=== PATIENT | male | born 1940 | race Caucasian/White ===

== ENCOUNTER 2017-01-07 19:00 | Inpatient (IN) ==
--- NOTE | 2017-01-07 19:38 | Emergency Department Note ---
Disposition Clinical Impression: Dehydration, Debility, Peripheral edema, Multiple falls, Elevated troponin I level, Chronic venous hypertension (idiopathic) with ulcer and inflammation of left lower extremity [id number] kidney injury Qualifiers: Acute renal failure type: unspecified Chronic kidney disease stage: unspecified stage Qualified Code(s): N17.9 - Acute kidney failure, unspecified Diabetic ulcer of right foot with fat layer exposed Qualifiers: Diabetic foot ulcer location: unspecified part of foot Diabetes mellitus type: other specified (including EMILY) Qualified Code(s): E13.621 - Other specified diabetes mellitus with foot ulcer Disposition: Admitted As Inpatient Condition: Good Time of Disposition: 00:02 Weakness HPI - General Chief complaint: ED General Medical Stated complaint: fall/"stretched chest" Time Seen by Provider: 01/07/17 19:11 Source: patient Limitations: no limitations Nursing Notes Reviewed: Yes Vital Signs Reviewed: Yes - History of Present Illness HPI Narrative: 76-year-old male history of CABGx4, CHF and 80 mg of Lasix twice a day, peripheral venous stasis dermatitis, diabetic ulcers, diabetes, referral vascular disease, presents with weakness and multiple falls at home. Patient had a ground-level fall off the bed as he is running out of bed and fell onto his back and buttocks, has bruising to his bilateral upper arms when he was moved, his had a lot of difficulty moving them out of the bed was wedged in between the bed and the wall. The patient reports intermittent chest pain, history of quadruple bypass reports for the 10 chest pain or shortness of breath , denies fever chills productive cough. Intermittent nausea but no diaphoresis associated with this chest pain. Pt Subjective Complaint: generalized weakness/fatigue Onset (ago): day(s) Duration: intermittent Pain Severity: moderate Pain Scale: 9 If pain, quality: aching Associated symptoms: Reports: chest pain, dysuria, easy bruising, nausea/ vomiting. Denies: dark stools, diaphoresis, fever/chills, headaches, loss of appetite, myalgias - Related Data Home Medications Medication Instructions Recorded Confirmed Atorvastatin [Lipitor] 40 mg PO HS 10/09/16 01/07/17 Furosemide [Lasix] 80 mg PO DAILY 10/09/16 01/07/17 Insulin Glargine,Hum.rec.anlog 32 unit SQ DAILY 10/09/16 01/07/17 [Lantus Solostar] Insulin Glargine,Hum.rec.anlog 40 unit SQ HS 10/09/16 01/07/17 [Lantus Solostar] Insulin LISPRO [Humalog] 0 unit SQ TIDWM 10/09/16 01/07/17 Lisinopril [Zestril] 5 mg PO DAILY 10/09/16 01/07/17 Potassium Chloride [Klor-Con 10] 30 meq PO BID 10/09/16 01/07/17 Pramipexole [Mirapex] 1.5 mg PO HS 10/09/16 01/07/17 metOLazone [Zaroxolyn] 2.5 mg PO Q48H 10/09/16 01/07/17 Aspirin Enteric Coated [Aspirin EC] 81 mg PO DAILY 01/07/17 01/07/17 Ferrous Sulfate 325 mg PO BIDWM 01/07/17 01/07/17 Isosorbide MONOnitrate (24 HR) 30 mg PO DAILY 01/07/17 01/07/17 [Imdur] Metoprolol XL (24 HR) Succ [Toprol 50 mg PO DAILY 01/07/17 01/07/17 XL] [place]-3 Fatty Acids [Fish Oil 1,000 mg PO DAILY 01/07/17 01/07/17 Concentrate] Allergies Allergy/AdvReac Type Severity Reaction Status Date / Time Latex, Natural Rubber AdvReac Rash Verified 07/29/16 13:54 All systems ED: reviewed and negative except as stated. Review of Systems: As Per HPI Constitutional: Reports: as per HPI, weakness, weight change. Denies: fever, chills Eyes: Denies: eye pain ENT ED: Denies: ear pain Cardiovascular: Reports: as per HPI, chest pain, dyspnea on exertion, orthopnea , edema Respiratory: Denies: cough, dyspnea Gastrointestinal: Denies: abdominal pain, nausea Genitourinary: Reports: as per HPI, frequency, other (Hesitency and retention). Denies: urgency, dysuria Integumentary: Denies: rash, abrasion Neurological: Reports: as per HPI, weakness. Denies: headache, numbness, paresthesias Psychiatric: Denies: anxiety Past Medical History - Past Medical History Attestation: Yes The following information was validated with the patient. Source: patient Medical history: Reports: CHF, diabetes, hyperlipidemia, hypertension, myocardial infarction Surgical history: Reports: coronary bypass (CABG) Psychiatric history: Reports: no psych history - Social History Smoking Status: Never smoker Smokeless Tobacco Status: No Alcohol use: Reports: none Drug use: Reports: none Physical Exam Constitutional: Obese male hypoxic 93% on 3 L, appears uncomfortable Eyes: PERRLA, sclera anicteric ENT & Mouth: dry mucous mem Neck: normal inspection, mild right lateral tenderness no c spine ttp Resp: Diminished at the bases bilaterally fine Rales CV: Diminished heart sounds secondary to habitus GI: obese reducible umbilical hernia, no guardinging or rebound : limited secondary to habitus, leakage of urine, no evidence of glans penis on inspection, uncircumcised per pt Back: normal inspection, no tenderness to palpation Neuro: A&O3, CNII-XII grossly intact, WATTERS Skin: Stasis dermatitis +3 pitting edema bilateral lower extremities, right leg in a cast below knee ulcer per patient - General Limitations: no limitations General appearance: alert, in no apparent distress Course Course Narrative: 76-year-old male with shortness of breath generalized weakness chest pain, EKG shows no ischemic changes, patient concerning given chronic debility weakness likely renal failure CHF troponin CBC BMP CT had given fall plan to admit. - Reevaluation(s) Reevaluation #1: Pt with elevated troponin 0.12 in the setting of acute kidney injury and recent fall will not anticoagulate with heparin or Lovenox at this time, aspirin was given, admitted to the hospitalist service, multiple times at [facility] catheter placement were attempted in the ED a 14-[place] coude catheter was attempted and unsuccessful secondary to unable to visualize urethra, patient likely will need urology for catheter placement however not felt to be emergently given the patient had some leakage of urine and was able to be placed in a diaper at bedside .Admrubén talamanteso hospitalist Jose. Time: 00:08 Vital Signs Temperature 98.4 F 01/07/17 19:03 Pulse Rate 61 01/07/17 19:03 Respiratory Rate 20 01/07/17 19:03 Blood Pressure 118/69 01/07/17 19:03 O2 Sat by Pulse Oximetry 98 01/07/17 19:03 Temperature 98.4 F 01/07/17 19:03 Pulse Rate 61 01/07/17 19:03 Respiratory Rate 16 01/07/17 23:12 Blood Pressure 123/56 01/07/17 23:12 O2 Sat by Pulse Oximetry 95 01/07/17 19:43 Oxygen Delivery Oxygen Delivery Nasal Cannula Weakness - Differential Diagnosis Differential Diagnosis: Likely: hypoglycemia, rhabdomyolysis, sepsis/infection, dehydration - Medical Records Medical records reviewed: Yes I reviewed the patient's medical records. - Lab Data Lab results reviewed: Yes I reviewed the patient's lab results. Result diagrams: 01/07/17 19:25 01/07/17 19:25 Lab Results 01/07/17 01/07/17 01/07/17 Range/Units 19:25 19:25 19:25 WBC (4.3-11.1) K/mcL RBC (4.19-5.50) M/mcL Hgb (12.9-16.9) g/dL Hct (37.5-50.1) % MCV (83.0-100.0) fL MCH (28.0-33.3) pg MCHC (31.6-35.5) g/dL RDW (11.5-14.5) % Plt Count (140-400) K/mcL MPV (9.4-12.4) fL Immature Gran % (0-4) % Seg Neutrophils % % Lymphocytes % % Monocytes % % Eosinophils % % Basophils % % Neutrophils # (1.6-8.9) K/mcL Lymphocytes # (0.6-4.6) K/mcL Monocytes # (0.0-1.3) K/mcL Eosinophils # (0.0-0.6) K/mcL Basophils # (0.0-0.2) K/mcL Platelet Estimate (Normal) Immature Plt Fraction (1.1-6.1) % PT 14.6 H (9.4-12.1) Seconds INR 1.3 APTT 31.1 (26.0-36.0) Seconds Sodium 141 (136-145) mEq/L Potassium 4.7 H (3.5-4.5) mEq/L Chloride 104 (98-109) mEq/L Carbon Dioxide 31 H (19-29) mEq/L BUN 53 H (8-26) mg/dL Creatinine 1.43 H (0.72-1.25) mg/dL Est GFR ( Amer) 58 L (> 60) Est GFR (Non-Af Amer) 48 L (> 60) BUN/Creatinine Ratio 37 H (6-26) Glucose 119 H (70-99) mg/dL Calculated Osmolality 308 H (280-300) Calcium 9.0 (8.6-10.8) mg/dL Total Bilirubin 1.0 (0.2-1.2) mg/dL AST 28 (5-34) Units/L ALT 16 (0-55) Units/L Alkaline Phosphatase 118 (38-126) Units/L Creatine Kinase 297 H (30-200) Units/L Troponin I (0-0.03) ng/mL B-Natriuretic Peptide 406 H (0-100) pg/mL Serum Total Protein 6.7 (6.0-8.3) g/dL Albumin 3.0 L (3.5-5.0) g/dL Globulin 3.7 H (2.4-3.5) g/dL Albumin/Globulin Ratio 0.8 L (1.1-2.2) 01/07/17 01/07/17 Range/Units 19:25 19:25 WBC 6.6 (4.3-11.1) K/mcL RBC 3.14 L (4.19-5.50) M/mcL Hgb 9.2 L (12.9-16.9) g/dL Hct 31.1 L (37.5-50.1) % MCV 99.0 (83.0-100.0) fL MCH 29.3 (28.0-33.3) pg MCHC 29.6 L (31.6-35.5) g/dL RDW 17.8 H (11.5-14.5) % Plt Count 79 L (140-400) K/mcL MPV 11.9 (9.4-12.4) fL Immature Gran % 0.5 (0-4) % Seg Neutrophils % 73.3 % Lymphocytes % 18.1 % Monocytes % 6.2 % Eosinophils % 1.7 % Basophils % 0.2 % Neutrophils # 4.8 (1.6-8.9) K/mcL Lymphocytes # 1.2 (0.6-4.6) K/mcL Monocytes # 0.4 (0.0-1.3) K/mcL Eosinophils # 0.1 (0.0-0.6) K/mcL Basophils # 0.0 (0.0-0.2) K/mcL Platelet Estimate Decreased L (Normal) Immature Plt Fraction 6.9 H (1.1-6.1) % PT (9.4-12.1) Seconds INR APTT (26.0-36.0) Seconds Sodium (136-145) mEq/L Potassium (3.5-4.5) mEq/L Chloride (98-109) mEq/L Carbon Dioxide (19-29) mEq/L BUN (8-26) mg/dL Creatinine (0.72-1.25) mg/dL Est GFR ( Amer) (> 60) Est GFR (Non-Af Amer) (> 60) BUN/Creatinine Ratio (6-26) Glucose (70-99) mg/dL Calculated Osmolality (280-300) Calcium (8.6-10.8) mg/dL Total Bilirubin (0.2-1.2) mg/dL AST (5-34) Units/L ALT (0-55) Units/L Alkaline Phosphatase (38-126) Units/L Creatine Kinase (30-200) Units/L Troponin I 0.12 H* (0-0.03) ng/mL B-Natriuretic Peptide (0-100) pg/mL Serum Total Protein (6.0-8.3) g/dL Albumin (3.5-5.0) g/dL Globulin (2.4-3.5) g/dL Albumin/Globulin Ratio (1.1-2.2) - Radiology Data Radiology results reviewed: Yes I reviewed the patient's radiology results. Chest X-Ray 01/07/17 19:34 IMPRESSION: Cardiomegaly with pulmonary vascular congestion and bilateral pleural effusions. Mild interstitial edema is also suspected. D/ / Mgean Palmer Cha, MD / Megan Palmer Cha, MD Interpreting Provider: Megan Palmer Cha, MD Cervical Spine CT 01/07/17 19:36 IMPRESSION: No acute traumatic cervical spine abnormality Bilateral pleural effusions with dependent atelectasis. D/ / Edenilson Peralta / Edenilson Peralta Interpreting Provider: Edenilson Peralta Head CT 01/07/17 19:36 IMPRESSION: No acute intracranial abnormality. Diffuse atrophic changes with findings suggesting chronic microvascular ischemia D/ / Cory Antoine MD / Cory Antoine MD Interpreting Provider: Cory Antoine MD - EKG Data EKG attestation: Yes I reviewed and interpreted this EKG. EKG shows normal: sinus rhythm Rate: bradycardia (57 bpm W[place] 138 QRS [address] segment lavation's, depressions in leads V3 V4 and V5 V6 seen on previous EKG 14/02) Rhythm: NSR ST segment depression in: v3, v4 When compared to previous EKG there are: no significant changes Interpretation: no acute changes Attestation Statement - Attestation Attestation: I, Roque Hall MD, personally evaluated this patient and discussed their management with the resident physician. I reviewed the resident's note and agree with the documented findings, medical decision making, and plan of care. 76-year-old male presents from home with a complaint of increasing generalized weakness and a fall out of bed today. Patient states he just sort of slid out of the bed onto the floor. He was unable to get up and family had difficulty getting him up out of the floor. Patient is obese. Complains of increased swelling of his lower extremities and lower abdomen. He complains of some chest pain, mostly on the right side and thinks it is from where he fell. He denies any increased shortness of breath. No increased cough or fever. On examination patient is a well-developed obese elderly male in no acute distress. She is alert and appropriate. There is no cyanosis or diaphoresis. There is some tenderness palpation over the right anterior chest wall. Breath sounds are decreased bilaterally with some mild bibasilar rales. Heart regular rate and rhythm. Abdomen is soft and nontender with normal bowel sounds. There is a large nontender umbilical hernia. Moderate bilateral lower extremity edema. The right lower leg is in a cast. There is moderate ecchymosis to the inner aspect of the upper arms bilaterally where family tried to lift him out of the floor. Head CT negative. Chest x-ray shows cardiomegaly with pulmonary vascular congestion and bilateral pleural effusions. Mild interstitial edema is also suspected. Labs reviewed. Elevated troponin. No acute changes on EKG. The hospitalist, Dr. Garcia, was consulted and accepted admission of the patient.
[2017-01-07 19:42] LABS: Red Cell Distribution Width 17.8 % (11.5-14.5)
[2017-01-07 19:44] LABS: Basophils % 0.2 %; Eosinophils # 0.1 K/mcL (0.0-0.6); Eosinophils % 1.7 %; Hematocrit 31.1 % (37.5-50.1); Hemoglobin 9.2 g/dL (12.9-16.9); Immature Granulocytes % 0.5 % (0-4); Immature Platelets 6.9 % (1.1-6.1); Lymphocytes # 1.2 K/mcL (0.6-4.6); Lymphocytes % 18.1 %; Mean Corpuscular HGB Conc 29.6 g/dL (31.6-35.5); Mean Corpuscular Hemoglobin 29.3 pg (28.0-33.3); Mean Platelet Volume 11.9 fL (9.4-12.4); Monocytes # 0.4 K/mcL (0.0-1.3); Monocytes % 6.2 %; Neutrophils # 4.8 K/mcL (1.6-8.9); Red Blood Count 3.14 M/mcL (4.19-5.50); Segmented Neutrophils % 73.3 %
[2017-01-07 19:47] LABS: INR 1.3; Prothrombin Time 14.6 Seconds (9.4-12.1)
[2017-01-07 19:50] LABS: Activated Partial Thrombo Time 31.1 Seconds (26.0-36.0)
[2017-01-07 19:53] LABS: Albumin/Globulin Ratio 0.8 (1.1-2.2); Globulin 3.7 g/dL (2.4-3.5); Potassium 4.7 mEq/L (3.5-4.5); Total Protein 6.7 g/dL (6.0-8.3)
[2017-01-07 20:04] LABS: Platelet Count 79 K/mcL (140-400)
[2017-01-07 20:05] LABS: Platelet Estimate Decreased (Normal)
[2017-01-07] MEDS ORDERED: Aspirin 325 MG TABLET PO ONE (21:56)
[2017-01-08] MEDS: *HR* Morphine 2 MG/ML SYRINGE IVP PRN (01:37)
[2017-01-08] MEDS ORDERED: Naloxone 0.4 MG/ML INJ IVP PRN (05:57)
[2017-01-08] MEDS ORDERED: *HR* Dextrose 50 % in Water (Syg) 50 ML SYRINGE IVP PRN (06:05)
[2017-01-08] MEDS ORDERED: Dextrose Gel 15 GM PO PRN ×2 (06:05)
[2017-01-08] MEDS ORDERED: D5% in Water 1,000 ML IVC PRN (06:05)
--- NOTE | 2017-01-08 06:13 | Internal Med History&Physical ---
Date of Encounter: 01/08/17 Time of Encounter: 05:25 Assessment and Plan (1) Chest pain Current visit: Yes Status: Acute 1. I suspect he has chest wall pain, but his troponin is elevated. 2. Will cycle troponins and EKG's. 3. Continue home meds as appropriate. 4. Consult cardiology. 5. Check limited ECHO to evaluate LV function. Qualifiers: Chest pain type: precordial pain Qualified Code(s): R07.2 - Precordial pain (2) CHF (congestive heart failure) Current visit: Yes Status: Acute 1. Will diurese with IV Lasix and monitor I/O, daily weights. 2. Check ECHO and assess LV function. 3. Patient with distended abdomen and clinical suspicion of ascites --> will order liver ultrasound to evaluate. Qualifiers: Congestive heart failure type: unspecified congestive heart failure type Congestive heart failure chronicity: acute on chronic Qualified Code(s): I50.9 - Heart failure, unspecified (3) Insulin dependent diabetes mellitus Current visit: Yes Status: Chronic 1. Will continue a lower odse of basal insulin with SSI. 2. Monitor and adjust accordingly. (4) Debility Current visit: Yes Status: Acute 1. Once stable from cardiac standpoint, will need PT/OT evaluations. (5) Elevated troponin I level Current visit: Yes Status: Acute 1. Given his kidney injury, this may be due to poor renal clearance. 2. However, he has known CAD. We will cycle troponins and EKG. 3. Limited ECHO to evaluate LV function. 4. Consult cardiology. (6) [id number] kidney injury Current visit: Yes Status: Suspected 1. We do not have old labs or records to compare. 2. Based upon history and exam, I suspect he has STAR on CKD. 3. Monitor renal function and consider nephrology consult. Qualifiers: Acute renal failure type: unspecified Chronic kidney disease stage: unspecified stage Qualified Code(s): N17.9 - Acute kidney failure, unspecified ; N18.9 - Chronic kidney disease, unspecified (7) DVT prophylaxis Current visit: Yes Status: Acute 1. Heparin SQ. 2. Monitor platelets and, if dropping, will need to stop Heparin SQ. Internal Medicine - H&P: HPI Chief complaint: chest pain; SOB; anasarca Admitted From: Emergency Dept Plans for Post Hospital Care: Home History of present illness: Mr. Ramos is a 76 year old male who presents to the ER tonight with complaints of a fall, weakness, worsening generalized edema, and shortness of breath with chest pain. He was seen and evaluated in the ER and admitted to hospitalist service with diagnosis of CHF. Upon my assessment of the patient, he is a rather poor historian. I obtained most of the history from his and son and daughter. He has been having increasing weight gain, swelling, dyspnea with exertion, and orthopnea. He slid out of bed earlier yesterday and fell to the ground. He complains of chest pain, but it appears that he has chest wall tenderness from his injury. He has a history of coronary disease and had CABG several years ago. He also has a history of CHF. However, his last ECHO in July of this year revealed normal systolic function and diastolic function. He denies any prior history of liver disease or kidney disease. His creatinine is elevated, but I have no old records to compare this to. He is diabetic, but he denies any episodes of hypoglycemia lately. He has been following with wound care center and has had been having serial casting of his right foot to assist with wound healing of a diabetic foot ulcer. I am unable to visualize his foot ulcer as his foot is casted and not accessible to visual exam. He denies any fevers, chills, or night sweats. Past Med Surg Social Fam HX - Past Medical History Source: patient, obtained from family, other (ER records) Medical history: CHF, diabetes, hyperlipidemia, hypertension, myocardial infarction Psychiatric history: no psych history - Past Surgical History Surgical History: coronary bypass (CABG) - Social History Smoking Status: Never smoker Smokeless Tobacco Status: No Alcohol use: none Drug use: none Current living situation: Home, With Family - Family History Father Living Status: Age at : 69 Cause of : heart attack Hx Family Cardiac Disorders: Yes Brother Living Status: Hx Family Cancer: Yes (stomach) Mother Living Status: Cause of : Cirrhosis of liver Internal Medicine - H&P: Meds Atorvastatin [Lipitor] 40 mg PO HS 10/09/16 [History] Furosemide [Lasix] 80 mg PO DAILY 10/09/16 [History] Insulin Glargine,Hum.rec.anlog [Lantus Solostar] 32 unit SQ DAILY 10/09/16 [ History] Insulin Glargine,Hum.rec.anlog [Lantus Solostar] 40 unit SQ HS 10/09/16 [History ] Insulin LISPRO [Humalog] 0 unit SQ TIDWM 10/09/16 [History] Lisinopril [Zestril] 5 mg PO DAILY 10/09/16 [History] Potassium Chloride [Klor-Con 10] 30 meq PO BID 10/09/16 [History] Pramipexole [Mirapex] 1.5 mg PO HS 10/09/16 [History] metOLazone [Zaroxolyn] 2.5 mg PO Q48H 10/09/16 [History] Aspirin Enteric Coated [Aspirin EC] 81 mg PO DAILY 01/07/17 [History] Ferrous Sulfate 325 mg PO BIDWM 01/07/17 [History] Isosorbide MONOnitrate (24 HR) [Imdur] 30 mg PO DAILY 01/07/17 [History] Metoprolol XL (24 HR) Succ [Toprol XL] 50 mg PO DAILY 01/07/17 [History] [place]-3 Fatty Acids [Fish Oil Concentrate] 1,000 mg PO DAILY 01/07/17 [History] 3 Allergy/AdvReac Type Severity Reaction Status Date / Time Latex, Natural Rubber AdvReac Rash Verified 07/29/16 13:54 - Constitutional Constitutional: weakness, weight gain, no chills, no fever(s), no night sweats - EENT Eyes: no change in vision, no decreased night vision Ears: no tinnitus Nose, mouth and throat: no nasal congestion, no sinus pressure, no sore throat - Cardiovascular Cardiovascular ROS IM: chest pain, diaphoresis, dyspnea, dyspnea on exertion, orthopnea, paroxysmal nocturnal dyspnea - Respiratory Respiratory: no cough, no hemoptysis, no chest congestion - Gastrointestinal Gastrointestinal: no abdominal pain, no diarrhea, no hematemesis, no hematochezia, no melena, no vomiting - Genitourinary Genitourinary ROS male: no dysuria, no flank pain, no hematuria - Musculoskeletal Musculoskeletal ROS IM: arthralgias, back pain - Integumentary Integumentary IM: skin ulcer (right foot), no jaundice - Neurological Neurological ROS: frequent falls, no dizziness, no focal weakness, no headache(s ) - Psychiatric Psychiatric: no anxiety, no depression - Endocrine Endocrine IM: no polydipsia, no polyuria - Hematologic/Lymphatic Hematologic/Lymphatic: easy bruising, no lymphadenopathy - Allergic/Immunologic Allergic/Immunologic: no GI upset with certain foods - Constitutional Vitals: Temp Pulse Resp BP Pulse Ox 98.2 F 59 18 109/55 94 01/08/17 03:31 01/08/17 05:49 01/08/17 03:31 01/08/17 05:49 01/08/17 05:49 General appearance: Present: cooperative, mild distress, A&O X 3, pleasant, answers questions appropriately - Head Head exam: Present: atraumatic, normal inspection - Expanded Head Exam Head exam expanded: Absent: abrasion, contusion - Eye Eye exam: Present: EOMI, PERRL. Absent: scleral icterus Pupils: Present: normal accommodation - ENT ENT exam: Present: mucous membranes moist, normal exam, normal oropharynx - Neck Neck exam general surgery: Present: full ROM, supple. Absent: tenderness - Expanded Neck Exam Neck exam: Absent: carotid bruit - Respiratory Respiratory exam: Present: chest wall tenderness (reproducible), rales ( bibasilar), rhonchi. Absent: accessory muscle use, CTAB, wheezes - Cardiovascular Cardiovascular exam: Present: distant heart sounds, RRR, +S1, +S2. Absent: diastolic murmur, JVD, systolic murmur - GI/Abdominal GI/Abdominal exam: Present: soft. Absent: guarding, hepatomegaly, rebound, splenomegaly, tenderness Additional comments: increased girth; ? shifting dullness to palpation - Extremities Exam Extremities exam: Present: full ROM, pedal edema (2-3+). Absent: calf tenderness, joint swelling - Back Exam Back exam: Absent: CVA tenderness (L), CVA tenderness (R) - Neurological Exam Neurological exam: Present: alert, CN II-XII intact, oriented X3, no focal deficits - Psychiatric Psychiatric exam: Present: normal affect, normal mood - Skin Skin exam: Present: dry, rash (groin -- fungal rash), warm Internal Med - H&P Results - Labs CBC & Chem 7: 01/07/17 19:25 01/07/17 19:25 Labs: Cardiac Enzymes 01/08/17 Range/Units 01:46 Troponin I 0.12 H* (0-0.03) ng/mL - EKG Data -: EKG Interpreted by Myself EKG shows normal: sinus rhythm - EKG Data Prior EKG available for review: yes When compared to previous EKG: there is no significant change EKG comments: 01/08/17 06:22 non-specific ST-T changes (chronic) - Diagnostic Studies Chest x-ray Status: image reviewed by me (cardimegaly with CHF findings)
[2017-01-08] MEDS: *HR* Heparin 5,000 UNIT/ML VIAL SQ SCH ×2 (06:33→17:19)
[2017-01-08] MEDS: Insulin LISPRO 300 UNITS/3 ML VIAL SQ SCH ×3 (07:26→17:10)
--- NOTE | 2017-01-08 08:39 | Internal Med Progress Note ---
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 Current Visit: Yes Status: Acute Qualifiers: Diabetic foot ulcer location: unspecified part of foot Diabetes mellitus type: other specified (including EMILY) Qualified Code(s): E13.621 - Other specified diabetes mellitus with foot ulcer; L97.512 - Non-pressure chronic ulcer of other part of right foot with fat layer exposed (5) Aeakz-ta-ejxefhb kidney injury Current Visit: Yes Status: Suspected Qualifiers: Acute renal failure type: unspecified Chronic kidney disease stage: unspecified stage Qualified Code(s): N17.9 - Acute kidney failure, unspecified ; N18.9 - Chronic kidney disease, unspecified (6) Insulin dependent diabetes mellitus Current Visit: Yes Status: Chronic - Subjective Interval history: Patient has past medical history of CABG, diabetes. He is is admitted for chest pain. Apparently he had a fall at home and admitting hospitalist feel that it would be chest wall pain however troponins are slightly elevated though flat in the setting of elevated creatinine. His main issue however is congestive heart failure as chest x-ray has shown bilateral pleural effusion and he has been started on IV Lasix 40 twice a day but since he has not produced much urine and I will increase it to IV Lasix 80 twice a day plus Zaroxolyn for a few days and recheck his potassium in the morning. Echocardiogram and cardiology consults are pending. A plan to follow his renal function and blood sugars on daily basis as well as I's and O's. Patient has chronic right foot ulcer. Patient does get wound care at home and according to family it has healed quite a lot. We are not sure about his renal status and will obtain a UA as his creatinine is slightly elevated. We will watch his blood sugars closely. Patient's family states that since April he has been having difficulty in ambulating for the last 2 weeks cannot get out of bed by himself and has been falling. Apparently no workup has been done. I will order MRI of brain and ultrasound of carotids. He is already on aspirin. Will check fasting lipid profile. Neuro Examination showed some weakness on the right - Constitutional Vitals: Temp Pulse Resp BP Pulse Ox 98.3 F 61 15 141/58 94 01/08/17 06:22 01/08/17 06:22 01/08/17 06:22 01/08/17 06:22 01/08/17 06:22 General appearance: Present: cooperative, mild distress, A&O X 3, pleasant, answers questions appropriately - Head Head exam: Present: atraumatic, normocephalic - Eye Eye exam: Present: PERRL, conjuntiva pink, sclera anicteric Pupils: Present: PERRL - Neck Neck exam general surgery: Present: supple, trachea midline. Absent: lymphadenopathy - Respiratory Respiratory exam: Present: CTAB. Absent: accessory muscle use, rales, rhonchi, wheezes - Cardiovascular Cardiovascular exam: Present: RRR, +S1, +S2. Absent: diastolic murmur, gallop, rubs, systolic murmur - GI/Abdominal GI/Abdominal exam: Present: normal bowel sounds, soft, no peritoneal signs. Absent: distended, tenderness - Extremities Exam Extremities exam: Present: warm, radial pulses palpable and symmetrical. Absent : calf tenderness, cyanotic, pedal edema - Neurological Exam Neurological exam: Present: CN II-XII intact, oriented X3, no focal deficits. Absent: pronater drift, facial droop, speech deficit - Skin Skin exam: Present: dry, intact Internal Medicine: Result - Labs CBC & Chem 7: 01/08/17 08:37 01/08/17 08:37 Labs: Cardiac Enzymes 01/08/17 Range/Units 01:46 Troponin I 0.12 H* (0-0.03) ng/mL - ABG Interpretation ABG results: PT/INR, D-dimer PT 14.6 Seconds (9.4-12.1) H 01/07/17 19:25 Consult Discharge Plan - Plan Referrals: Dale Pope MD [Primary Care Provider] -
[2017-01-08] MEDS: Insulin DETEMIR 100 UNIT/ML X5UNITS SQ SCH ×2 (08:45→22:54)
[2017-01-08] MEDS: Isosorbide MONOnitrate (24 HR) 30 MG TAB.ER.24H PO SCH (08:48)
[2017-01-08] MEDS: Aspirin Enteric Coated 81 MG Tablet PO SCH (08:48)
[2017-01-08] MEDS: Metoprolol XL (24 HR) Succ 50 MG TAB.ER.24H PO SCH (08:49)
[2017-01-08] MEDS: Fluconazole 100 MG TABLET PO SCH (08:49)
[2017-01-08] MEDS: Furosemide 40 MG/4 ML VIAL IVP SCH ×3 (08:49→20:25)
[2017-01-08] MEDS: Ketoconazole 2% CRM 15 GM TUBE TP SCH ×2 (08:51→22:59)
--- NOTE | 2017-01-08 08:52 | Cardiology Consult Note ---
Date of Encounter: 01/08/17 Time of Encounter: 08:50 Assessment and Plan (1) Elevated troponin I level Current Visit: Yes Status: Acute Mild troponin elevation, 0.12, 0.12, 0.18 in the setting of fall and STAR after laying on ground fro two hours. EKG with no acute change. Denies chest pain. Known history of CAD. H/o 4 V CABG. Patient had abnormal stress test in 2014. He opted for medical management at that time. Continues to agree with medical management. TTE 04/2016 showed preserved EF. (2) CHF (congestive heart failure) Current Visit: Yes Status: Acute EF TTE 05/08/16-LVEF 60%.Normal left ventricular size and systolic function. Normal diastolic function of the left ventricle. Normal right ventricular size and function. No significant valvular dysfunction. No pulmonary hypertension. No CHF seen. May have some diastolic dysfunction. BLE chronic. CXR showed bilateral pleural effusions. BNP 409. On IV lasix now. Monitor renal function. Likely multifactoral in the setting of morbid obesity, debility, dietary intake , and STAR. Initial weight is actually stable from previous weights. Weight increased while in hospital. Question accuracy. Check limited TTE to re-evaluate LV function. Qualifiers: Congestive heart failure type: unspecified congestive heart failure type Congestive heart failure chronicity: acute on chronic Qualified Code(s): I50.9 - Heart failure, unspecified (3) CAD (coronary artery disease) Current Visit: Yes Status: Acute H/o 4 V CABG and abnormal stress test in 2014. Patient opted for medical management. Denies chest pain. Continue asa, statin, and bb. Qualifiers: Coronary Disease-Associated Artery/Lesion type: [place] artery [place] vs. transplanted heart: [place] heart Associated angina: without angina Qualified Code(s): I25.10 - Atherosclerotic heart disease of [place] coronary artery without angina pectoris Discussion w patient/family: The assessment and plan as outlined above was discussed with the patient and/or family members who expressed understanding and agreement. All questions were answered. Thank you for involving us in the care of your patient. Please call with any questions. History of Present Illness Consult date: 01/08/17 Requesting physician: Sunday Marcial Consult reason: Elevated troponin Chief complaint: Weakness, fall History of present illness: Mr. Ramos is a 76 year old male with a history of 4V CABG, PVD, and diabetes who presents with increasing weakness and fall off his bed at home. He reports lying on the floor for two hours before his sons could get him up. Denies dizziness or lightheadedess. Denies chest pain. Reports mild SOB and chronic BLE. He thinks he recently gained 30 lbs. Cardiology consulted for elevated troponin. Troponin found to be elevated at 0.12x2. BNP at 406. Previous cardiac testing: TTE 05/08/16-LVEF 60%.Normal left ventricular size and systolic function. Normal diastolic function of the left ventricle. Normal right ventricular size and function. No significant valvular dysfunction. No pulmonary hypertension. Stress test 08/2014-Pharmacologic stress ECG is non diagnostic for ischemia due to failure to reach target heartrate. Gated EF = 58%. There is a small, moderate to severe intensity, fixed perfusion defect in the basal to mid inferior/inferoseptal segments. This could be due to a small prior infarct. There are moderate intensity, reversible perfusion defects throughout the inferolateral and anterolateral segments suggestive of ischemia. Past Med Surg Social Fam HX - Past Medical History Medical history: diabetes, hyperlipidemia, hypertension, myocardial infarction Psychiatric history: no psych history - Past Surgical History Surgical History: coronary bypass (CABG) - Social History Smoking Status: Never smoker Smokeless Tobacco Status: No Alcohol use: none Drug use: none - Family History Father Living Status: Age at : 69 Cause of : heart attack Hx Family Cardiac Disorders: Yes Brother Living Status: Hx Family Cancer: Yes (stomach) Mother Living Status: Cause of : Cirrhosis of liver Medications and Allergies Atorvastatin [Lipitor] 40 mg PO HS 10/09/16 [History] Furosemide [Lasix] 80 mg PO DAILY 10/09/16 [History] Insulin Glargine,Hum.rec.anlog [Lantus Solostar] 32 unit SQ DAILY 10/09/16 [ History] Insulin Glargine,Hum.rec.anlog [Lantus Solostar] 40 unit SQ HS 10/09/16 [History ] Insulin LISPRO [Humalog] 0 unit SQ TIDWM 10/09/16 [History] Lisinopril [Zestril] 5 mg PO DAILY 10/09/16 [History] Potassium Chloride [Klor-Con 10] 30 meq PO BID 10/09/16 [History] Pramipexole [Mirapex] 1.5 mg PO HS 10/09/16 [History] metOLazone [Zaroxolyn] 2.5 mg PO Q48H 10/09/16 [History] Aspirin Enteric Coated [Aspirin EC] 81 mg PO DAILY 01/07/17 [History] Ferrous Sulfate 325 mg PO BIDWM 01/07/17 [History] Isosorbide MONOnitrate (24 HR) [Imdur] 30 mg PO DAILY 01/07/17 [History] Metoprolol XL (24 HR) Succ [Toprol XL] 50 mg PO DAILY 01/07/17 [History] [place]-3 Fatty Acids [Fish Oil Concentrate] 1,000 mg PO DAILY 01/07/17 [History] 3 Allergy/AdvReac Type Severity Reaction Status Date / Time Latex, Natural Rubber AdvReac Rash Verified 07/29/16 13:54 All Systems Review: A 10-system review of systems was performed and is negative for pertinent findings except as documented above in the HPI. Physical Examination Vital Signs, Last 4 Hours Temp Pulse Resp BP Pulse Ox 01/08/17 06:22 98.3 F 61 15 141/58 94 01/08/17 05:49 59 109/55 94 General: Conversant, No Apparent Distress HEENT: Atraumatic, Normocephaly, Mucus Membranes Moist Neck: No JVD, Normal carotid pulses Cardiac: Reg Rate and Rhythm, Normal S1 and S2, No Murmur Lungs: Normal Breath Sounds, No Wheeze, Rales, Rhonchi Neuro: Alert and responsive, No focal deficits noted Abdomen: Soft, Non-Tender Skin: No rashes noted on visualized skin Musculoskeletal: No Chest Wall Tenderness Extremities: No Clubbing, No Cyanosis, No Edema, Normal Pulses Results 01/08/17 08:37 01/08/17 08:37 Lab Results 01/08/17 01:46 Troponin I 0.12 H* - Imaging and Cardiology Stress Test: report reviewed Echo: report reviewed - EKG Interpretation EKG results cardiology: personally reviewed Consult Discharge Plan - Plan Referrals: Dale aparicio MD [Primary Care Provider] -
[2017-01-08 09:04] LABS: Basophils % 0.3 %; Eosinophils # 0.2 K/mcL (0.0-0.6); Eosinophils % 2.3 %; Hematocrit 31.9 % (37.5-50.1); Hemoglobin 9.4 g/dL (12.9-16.9); Immature Granulocytes % 0.2 % (0-4); Lymphocytes # 1.6 K/mcL (0.6-4.6); Lymphocytes % 24.3 %; Mean Corpuscular HGB Conc 29.5 g/dL (31.6-35.5); Mean Corpuscular Hemoglobin 29.1 pg (28.0-33.3); Mean Corpuscular Volume 98.8 fL (83.0-100.0); Mean Platelet Volume 11.7 fL (9.4-12.4); Monocytes # 0.5 K/mcL (0.0-1.3); Monocytes % 8.1 %; Neutrophils # 4.2 K/mcL (1.6-8.9); Red Blood Count 3.23 M/mcL (4.19-5.50); Segmented Neutrophils % 64.8 %
[2017-01-08 09:06] LABS: Platelet Count 79 K/mcL (140-400)
[2017-01-08 09:07] LABS: INR 1.4; Prothrombin Time 14.7 Seconds (9.4-12.1)
[2017-01-08 09:09] LABS: Activated Partial Thrombo Time 31.9 Seconds (26.0-36.0)
[2017-01-08 09:16] LABS: Alanine Aminotransferase 14 Units/L (0-55); Albumin 2.8 g/dL (3.5-5.0); Albumin/Globulin Ratio 0.8 (1.1-2.2); Alkaline Phosphatase 116 Units/L (38-126); Aspartate Amino Transferase 27 Units/L (5-34); BUN/Creatinine Ratio 37 (6-26); Bilirubin,Total 0.7 mg/dL (0.2-1.2); Blood Urea Nitrogen 44 mg/dL (8-26); Calcium 8.9 mg/dL (8.6-10.8); Carbon Dioxide 34 mEq/L (19-29); Chloride 105 mEq/L (98-109); Globulin 3.5 g/dL (2.4-3.5); Glucose 73 mg/dL (70-99); Magnesium 1.7 mg/dL (1.6-2.6); Osmolality,Calculated 304 (280-300); Potassium 4.5 mEq/L (3.5-4.5); Sodium 142 mEq/L (136-145); Total Protein 6.3 g/dL (6.0-8.3); eGFR For African Americans > 60 (> 60); eGFR For Non-African Americans > 60 (> 60)
[2017-01-08 09:20] LABS: Hemoglobin A1C 5.5 %
[2017-01-08] MEDS ORDERED: Perflutren Lipid Microsphere 1.3 ML in 0.9 % Sodium Chloride 8.7 ML IVP ONE ×2 (14:36→14:52)
--- NOTE | 2017-01-08 16:09 | Electrocardiograph Report ---
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
[2017-01-08] MEDS: metOLazone 5 MG TABLET PO SCH (18:20)
[2017-01-08] MEDS: Acetaminophen 325 MG TABLET PO PRN (22:54)
[2017-01-09] MEDS: Acetaminophen 325 MG TABLET PO PRN (04:49)
[2017-01-09] MEDS: *HR* Heparin 5,000 UNIT/ML VIAL SQ SCH ×2 (05:26→18:05)
[2017-01-09] MEDS ORDERED: Albuterol 2.5 MG/3 ML NEBULIZER IH PRN (05:38)
[2017-01-09 06:52] LABS: Chol/HDL Ratio 2.6 (0-4.9)
--- NOTE | 2017-01-09 09:10 | Internal Med Progress Note ---
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 Current Visit: Yes Status: Acute Qualifiers: Diabetic foot ulcer location: unspecified part of foot Diabetes mellitus type: other specified (including EMILY) Qualified Code(s): E13.621 - Other specified diabetes mellitus with foot ulcer; L97.512 - Non-pressure chronic ulcer of other part of right foot with fat layer exposed (5) Fccgy-vf-dcdtkbn kidney injury Current Visit: Yes Status: Suspected Qualifiers: Acute renal failure type: unspecified Chronic kidney disease stage: unspecified stage Qualified Code(s): N17.9 - Acute kidney failure, unspecified ; N18.9 - Chronic kidney disease, unspecified (6) Insulin dependent diabetes mellitus Current Visit: Yes Status: Chronic - Subjective Interval history: Patient has past medical history of CABG, diabetes. He is is admitted for chest pain. Patient is a very poor historian. Apparently he had a fall at home and admitting hospitalist feel that it would be chest wall pain however troponins are slightly elevated though flat in the setting of elevated creatinine. His main issue however is congestive heart failure as chest x-ray has shown bilateral pleural effusion and he has been started IV Lasix 80 twice a day plus Zaroxolyn for a few days and recheck his potassium in the morning. Echocardiogram and cardiology consults were requested. Echo showed LV ejection fraction 60% with good LV systolic function and no significant valvular abnormality. On admission her liver ultrasound was done and I am not sure what was the cause but it showed liver cirrhosis. Although he is nonalcoholic but he has significant family history of nonalcoholic liver disease including his brother for her GERD liver cirrhosis and also his mother. It was noted that due to body habitus not much could be visualized. A plan to follow his renal function and blood sugars on daily basis as well as I's and O's. Patient has chronic right foot ulcer. Patient does get wound care at home and according to family it has healed quite a lot. We are not sure about his renal status and will obtain a UA as his creatinine is slightly elevated. We will watch his blood sugars closely. Patient's family states that since April he has been having difficulty in ambulating for the last 2 weeks cannot get out of bed by himself and has been falling. Apparently no workup has been done. I have ordered MRI of brain and ultrasound of carotids. Both nocturnist to be negative. PT/OT consulted. He is already on aspirin. Fasting lipid profile is satisfactory. - Constitutional Vitals: Temp Pulse Resp BP Pulse Ox 97.9 F 78 15 115/65 88 01/09/17 06:52 01/09/17 06:52 01/09/17 06:52 01/09/17 06:52 01/09/17 06:52 General appearance: Present: cooperative, mild distress, A&O X 3, pleasant, answers questions appropriately - Head Head exam: Present: atraumatic, normocephalic - Eye Eye exam: Present: PERRL, conjuntiva pink, sclera anicteric Pupils: Present: PERRL - Neck Neck exam general surgery: Present: supple, trachea midline. Absent: lymphadenopathy - Respiratory Respiratory exam: Present: decreased breath sounds. Absent: accessory muscle use, rales, rhonchi, wheezes - Cardiovascular Cardiovascular exam: Present: RRR, +S1, +S2. Absent: diastolic murmur, gallop, rubs, systolic murmur - GI/Abdominal GI/Abdominal exam: Present: normal bowel sounds, soft, no peritoneal signs. Absent: distended, tenderness - Extremities Exam Extremities exam: Present: pedal edema, warm, radial pulses palpable and symmetrical. Absent: calf tenderness, cyanotic - Neurological Exam Neurological exam: Present: CN II-XII intact, oriented X3, no focal deficits. Absent: pronater drift, facial droop, speech deficit - Skin Skin exam: Present: dry, intact Internal Medicine: Result - Labs CBC & Chem 7: 01/08/17 08:37 01/08/17 08:37 - ABG Interpretation ABG results: PT/INR, D-dimer PT 14.7 Seconds (9.4-12.1) H 01/08/17 08:37 Consult Discharge Plan - Plan Referrals: Dale Pope MD [Primary Care Provider] -
[2017-01-09] MEDS: Fluconazole 100 MG TABLET PO SCH (09:44)
[2017-01-09] MEDS: Metoprolol XL (24 HR) Succ 50 MG TAB.ER.24H PO SCH (09:44)
[2017-01-09] MEDS: Aspirin Enteric Coated 81 MG Tablet PO SCH (09:44)
[2017-01-09] MEDS: Insulin LISPRO 300 UNITS/3 ML VIAL SQ SCH ×3 (09:45→18:27)
[2017-01-09] MEDS: metOLazone 5 MG TABLET PO SCH (09:45)
[2017-01-09] MEDS: Isosorbide MONOnitrate (24 HR) 30 MG TAB.ER.24H PO SCH (09:45)
[2017-01-09] MEDS: Furosemide 40 MG/4 ML VIAL IVP SCH ×3 (09:46→20:25)
[2017-01-09] MEDS: Insulin DETEMIR 100 UNIT/ML X5UNITS SQ SCH ×2 (09:55→21:15)
[2017-01-09] MEDS: Ketoconazole 2% CRM 15 GM TUBE TP SCH ×2 (10:00→20:26)
--- NOTE | 2017-01-09 10:40 | Carotid Imaging Report ---
Carotid Duplex Patient Name:Arvin Ramos Order Number:[id number] Procedure Date:01/08/2017 Date:1940ge:76 yrs Gender:Male Lt BP:128 / 62 mmHg Rt.BP:116 / 74 mmHgHeart Rate: Location:[facility] Room #: [facility] Plunger Shovel Operator:Nell Tuttle HEDY Referring MD:Sumanth Vidales MD Reading MD:Stephen Connell MD , FACS Primary Indications:bilateral leg weakness Risk Factors Yes/No Hypertension Yes Hypercholesterolemia Yes Diabetes Yes Impressions: Findings: Right proximal CCA, mid CCA, distal CCA, and bifurcation are essentially normal. Findings: Left carotid system was not imaged. Incomplete exam. Recommendations: After imaging the patient returned to their room. Findings Carotid Duplex: Right: The right proximal common carotid artery has a PSV of 101 cm/s and a EDV of 14 cm/s. The right mid common carotid artery has a PSV of 116 cm/s and a EDV of 18 cm/s. The right distal common carotid artery has a PSV of 97 cm/s and a EDV of 14 cm/s. The right bifurcation has a PSV of 81 cm/s and a EDV of 16 cm/s. The right proximal internal carotid artery has a PSV of 77 cm/s and a EDV of 13 cm/s. The right proximal internal carotid artery was not well visualized. The right mid internal carotid, right distal internal carotid, right eca and right vertebral arteries were not assessed. Left: The left proximal common carotid, left mid common carotid, left distal common carotid, left bifurcation, left proximal internal carotid, left mid internal carotid, left distal internal carotid, left eca and left vertebral arteries were not assessed. Prior Study: No prior study available for comparison. Carotid Results Right PSV EDV Assessment Proximal CCA 101 14 Normal Mid CCA 116 18 Normal Distal CCA 97 14 Normal Bifurcation 81 16 Normal Proximal ICA 77 13 Not Well Visualized Ratio's Right ICA/CCA Ratio: 0.66 ICA/CCA Values: 77/116 Updated by Stephen Connell MD, FACS on 01/09/2017 10:36:12 AM Stephen Connell MD electronically signed on 01/09/2017 10:36:33 AM with status of Final
--- NOTE | 2017-01-09 12:05 | Electrocardiograph Report ---
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
[2017-01-09] MEDS: *HR* Morphine 2 MG/ML SYRINGE IVP PRN (19:44)
[2017-01-10] MEDS: *HR* Morphine 2 MG/ML SYRINGE IVP PRN ×2 (03:22→17:29)
[2017-01-10] MEDS: *HR* Heparin 5,000 UNIT/ML VIAL SQ SCH ×2 (05:41→17:29)
[2017-01-10] MEDS: Insulin LISPRO 300 UNITS/3 ML VIAL SQ SCH ×3 (10:24→17:30)
[2017-01-10] MEDS: Aspirin Enteric Coated 81 MG Tablet PO SCH (10:25)
[2017-01-10] MEDS: Fluconazole 100 MG TABLET PO SCH (10:25)
[2017-01-10] MEDS: metOLazone 5 MG TABLET PO SCH (10:25)
[2017-01-10] MEDS: Isosorbide MONOnitrate (24 HR) 30 MG TAB.ER.24H PO SCH (10:25)
[2017-01-10] MEDS: Furosemide 40 MG/4 ML VIAL IVP SCH ×2 (10:25→22:21)
[2017-01-10] MEDS: Metoprolol XL (24 HR) Succ 50 MG TAB.ER.24H PO SCH (10:25)
[2017-01-10] MEDS: Ketoconazole 2% CRM 15 GM TUBE TP SCH ×2 (10:28→22:22)
[2017-01-10] MEDS: Insulin DETEMIR 100 UNIT/ML X5UNITS SQ SCH ×3 (10:28→23:00)
--- NOTE | 2017-01-10 12:18 | Internal Med Progress Note ---
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 Current Visit: Yes Status: Acute Qualifiers: Diabetic foot ulcer location: unspecified part of foot Diabetes mellitus type: other specified (including EMILY) Qualified Code(s): E13.621 - Other specified diabetes mellitus with foot ulcer; L97.512 - Non-pressure chronic ulcer of other part of right foot with fat layer exposed (5) Xzptl-kv-fpcuzdt kidney injury Current Visit: Yes Status: Suspected Qualifiers: Acute renal failure type: unspecified Chronic kidney disease stage: unspecified stage Qualified Code(s): N17.9 - Acute kidney failure, unspecified ; N18.9 - Chronic kidney disease, unspecified (6) Insulin dependent diabetes mellitus Current Visit: Yes Status: Chronic - Subjective Interval history: Patient has past medical history of CABG, diabetes. He is is admitted for chest pain. Patient is a very poor historian. Apparently he had a fall at home and admitting hospitalist feel that it would be chest wall pain however troponins are slightly elevated though flat in the setting of elevated creatinine. His main issue however is congestive heart failure as chest x-ray has shown bilateral pleural effusion and he has been started IV Lasix 80 twice a day plus Zaroxolyn for a few days and recheck his potassium in the morning. I could not find reliable I's and O's but I noted that since admission he has lost 5 kg I will remind nursing to do strict I's and O's. Echocardiogram and cardiology consults were requested. Echo showed LV ejection fraction 60% with good LV systolic function and no significant valvular abnormality. Cardiology has suggested medical management as previously he was recommended to get left heart catheter and he preferred medical management. On admission her liver ultrasound was done and I am not sure what was the reason but it showed liver cirrhosis. Although he is nonalcoholic but he has significant family history of nonalcoholic liver disease including his brother for her GERD liver cirrhosis and also his mother. It was noted that due to body habitus not much could be visualized. A plan to follow his renal function and blood sugars on daily basis as well as I 's and O's. Patient has chronic right foot ulcer. Patient does get wound care at home and according to family it has healed quite a lot. We are not sure about his renal status and will obtain a UA as his creatinine is slightly elevated. We will watch his blood sugars closely. Patient's family states that since April he has been having difficulty in ambulating for the last 2 weeks cannot get out of bed by himself and has been falling. Apparently no workup has been done. I have ordered MRI of brain and ultrasound of carotids. Both sleeve turner to be negative. PT/OT consulted. He is already on aspirin. Fasting lipid profile is satisfactory. - Constitutional Vitals: Temp Pulse Resp BP Pulse Ox 100 F H 75 15 136/69 92 01/10/17 11:39 01/10/17 11:39 01/10/17 11:39 01/10/17 11:39 01/10/17 11:39 General appearance: Present: cooperative, mild distress, A&O X 3, pleasant, answers questions appropriately - Head Head exam: Present: atraumatic, normocephalic - Eye Eye exam: Present: PERRL, conjuntiva pink, sclera anicteric Pupils: Present: PERRL - Neck Neck exam general surgery: Present: supple, trachea midline. Absent: lymphadenopathy - Respiratory Respiratory exam: Present: CTAB. Absent: accessory muscle use, rales, rhonchi, wheezes - Cardiovascular Cardiovascular exam: Present: RRR, +S1, +S2. Absent: diastolic murmur, gallop, rubs, systolic murmur - GI/Abdominal GI/Abdominal exam: Present: normal bowel sounds, soft, no peritoneal signs. Absent: distended, tenderness - Extremities Exam Extremities exam: Present: pedal edema, warm, radial pulses palpable and symmetrical. Absent: calf tenderness, cyanotic - Neurological Exam Neurological exam: Present: CN II-XII intact, oriented X3, no focal deficits. Absent: pronater drift, facial droop, speech deficit - Skin Skin exam: Present: dry, intact Internal Medicine: Result - Labs CBC & Chem 7: 01/08/17 08:37 01/08/17 08:37 - ABG Interpretation ABG results: PT/INR, D-dimer PT 14.7 Seconds (9.4-12.1) H 01/08/17 08:37 Consult Discharge Plan - Plan Referrals: Dale Pope MD [Primary Care Provider] -
[2017-01-10] MEDS: Acetaminophen 325 MG TABLET PO PRN (17:38)
[2017-01-11] MEDS: *HR* Morphine 2 MG/ML SYRINGE IVP PRN ×3 (06:00→21:50)
[2017-01-11] MEDS: *HR* Heparin 5,000 UNIT/ML VIAL SQ SCH ×2 (06:01→17:45)
[2017-01-11] MEDS: Insulin LISPRO 300 UNITS/3 ML VIAL SQ SCH ×3 (08:36→17:46)
[2017-01-11] MEDS: metOLazone 5 MG TABLET PO SCH (09:34)
[2017-01-11] MEDS: Metoprolol XL (24 HR) Succ 50 MG TAB.ER.24H PO SCH (09:34)
[2017-01-11] MEDS: Aspirin Enteric Coated 81 MG Tablet PO SCH (09:34)
[2017-01-11] MEDS: Furosemide 40 MG/4 ML VIAL IVP SCH ×2 (09:34→20:56)
[2017-01-11] MEDS: Isosorbide MONOnitrate (24 HR) 30 MG TAB.ER.24H PO SCH (09:34)
[2017-01-11] MEDS: Fluconazole 100 MG TABLET PO SCH (09:34)
[2017-01-11] MEDS: Insulin DETEMIR 100 UNIT/ML X5UNITS SQ SCH ×2 (09:36→21:40)
[2017-01-11] MEDS: Ketoconazole 2% CRM 15 GM TUBE TP SCH ×2 (09:37→21:41)
--- NOTE | 2017-01-11 17:29 | Internal Med Progress Note ---
Date of Encounter: 01/11/17 Time of Encounter: 17:27 - Assessment and plan (1) CHF (congestive heart failure) Current Visit: Yes Status: Acute Qualifiers: Congestive heart failure type: unspecified congestive heart failure type Congestive heart failure chronicity: acute on chronic Qualified Code(s): I50.9 - Heart failure, unspecified (2) Chest pain Current Visit: Yes Status: Acute Qualifiers: Chest pain type: unspecified Qualified Code(s): R07.9 - Chest pain, unspecified (3) Multiple falls Current Visit: Yes Status: Acute (4) Diabetic ulcer of right foot with fat layer exposed Current Visit: Yes Status: Acute Qualifiers: Diabetic foot ulcer location: unspecified part of foot Diabetes mellitus type: other specified (including EMILY) Qualified Code(s): E13.621 - Other specified diabetes mellitus with foot ulcer; L97.512 - Non-pressure chronic ulcer of other part of right foot with fat layer exposed (5) Avehd-wr-htxpywd kidney injury Current Visit: Yes Status: Suspected Qualifiers: Acute renal failure type: unspecified Chronic kidney disease stage: unspecified stage Qualified Code(s): N17.9 - Acute kidney failure, unspecified ; N18.9 - Chronic kidney disease, unspecified (6) Insulin dependent diabetes mellitus Current Visit: Yes Status: Chronic - Subjective Interval history: Patient has past medical history of CABG, diabetes. He is is admitted for chest pain. Patient is a very poor historian. Apparently he had a fall at home and admitting hospitalist feel that it would be chest wall pain however troponins are slightly elevated though flat in the setting of elevated creatinine. His main issue however is congestive heart failure as chest x-ray has shown bilateral pleural effusion and he has been started IV Lasix 80 twice a day plus Zaroxolyn for a few days and recheck his potassium in the morning. I could not find reliable I's and O's but I noted that since admission he has lost 5 kg I will remind nursing to do strict I's and O's. Echocardiogram and cardiology consults were requested. Echo showed LV ejection fraction 60% with good LV systolic function and no significant valvular abnormality. Cardiology has suggested medical management as previously he was recommended to get left heart catheter and he preferred medical management. Diuresing gradually. Repeat CBC CMP On admission her liver ultrasound was done and I am not sure what was the reason but it showed liver cirrhosis. Although he is nonalcoholic but he has significant family history of nonalcoholic liver disease including his brother for her GERD liver cirrhosis and also his mother. It was noted that due to body habitus not much could be visualized. A plan to follow his renal function and blood sugars on daily basis as well as I 's and O's. Patient has chronic right foot ulcer. Patient does get wound care at home and according to family it has healed quite a lot. We are not sure about his renal status and will obtain a UA as his creatinine is slightly elevated. We will watch his blood sugars closely. Patient's family states that since April he has been having difficulty in ambulating for the last 2 weeks cannot get out of bed by himself and has been falling. Apparently no workup has been done. I have ordered MRI of brain and ultrasound of carotids. Both return checker to be negative. PT/OT consulted. He is already on aspirin. Fasting lipid profile is satisfactory. Complaining of left shoulder pain. On examination it appears AC joint pain as well as rotator cuff injury. plan is to obtain an x-ray and consult physical therapy. - Constitutional Vitals: Temp Pulse Resp BP Pulse Ox 99.6 F 75 15 149/62 94 01/11/17 15:40 01/11/17 15:40 01/11/17 15:40 01/11/17 15:40 01/11/17 15:40 General appearance: Present: cooperative, mild distress, A&O X 3, pleasant, answers questions appropriately - Head Head exam: Present: atraumatic, normocephalic - Eye Eye exam: Present: PERRL, conjuntiva pink, sclera anicteric Pupils: Present: PERRL - Neck Neck exam general surgery: Present: supple, trachea midline. Absent: lymphadenopathy - Respiratory Respiratory exam: Present: CTAB. Absent: accessory muscle use, rales, rhonchi, wheezes - Cardiovascular Cardiovascular exam: Present: RRR, +S1, +S2. Absent: diastolic murmur, gallop, rubs, systolic murmur - GI/Abdominal GI/Abdominal exam: Present: normal bowel sounds, soft, no peritoneal signs. Absent: distended, tenderness - Extremities Exam Extremities exam: Present: warm, radial pulses palpable and symmetrical. Absent : calf tenderness, cyanotic, pedal edema Additional comments: limited Abduction limited and tenderness at the before meals joint week deltoids - Neurological Exam Neurological exam: Present: CN II-XII intact, oriented X3, no focal deficits. Absent: pronater drift, facial droop, speech deficit - Skin Skin exam: Present: dry, intact Internal Medicine: Result - Labs CBC & Chem 7: 01/08/17 08:37 01/08/17 08:37 - ABG Interpretation ABG results: PT/INR, D-dimer PT 14.7 Seconds (9.4-12.1) H 01/08/17 08:37 Consult Discharge Plan - Plan Referrals: Dale Pope MD [Primary Care Provider] -
[2017-01-12] MEDS: Acetaminophen 325 MG TABLET PO PRN ×2 (01:34→19:54)
[2017-01-12 01:47] LABS: Basophils % 0.1 %; Hemoglobin 10.2 g/dL (12.9-16.9); Mean Corpuscular Volume 94.8 fL (83.0-100.0)
[2017-01-12 01:48] LABS: Eosinophils # 0.3 K/mcL (0.0-0.6); Hematocrit 32.6 % (37.5-50.1); Immature Granulocytes % 0.3 % (0-4); Immature Platelets 7.4 % (1.1-6.1); Lymphocytes # 2.4 K/mcL (0.6-4.6); Lymphocytes % 27.2 %; Mean Corpuscular HGB Conc 31.3 g/dL (31.6-35.5); Mean Corpuscular Hemoglobin 29.7 pg (28.0-33.3); Mean Platelet Volume 11.6 fL (9.4-12.4); Monocytes # 0.9 K/mcL (0.0-1.3); Monocytes % 10.1 %; Platelet Count 103 K/mcL (140-400); Red Blood Count 3.44 M/mcL (4.19-5.50); Segmented Neutrophils % 59.3 %
[2017-01-12 01:49] LABS: Neutrophils # 5.2 K/mcL (1.6-8.9)
[2017-01-12 02:02] LABS: Alanine Aminotransferase 12 Units/L (0-55); Albumin 2.3 g/dL (3.5-5.0); Albumin/Globulin Ratio 0.6 (1.1-2.2); Alkaline Phosphatase 105 Units/L (38-126); Aspartate Amino Transferase 21 Units/L (5-34); BUN/Creatinine Ratio 32 (6-26); Bilirubin,Total 1.2 mg/dL (0.2-1.2); Blood Urea Nitrogen 42 mg/dL (8-26); Calcium 8.7 mg/dL (8.6-10.8); Chloride 89 mEq/L (98-109); Glucose 119 mg/dL (70-99); Osmolality,Calculated 296 (280-300); Potassium 2.9 mEq/L (3.5-4.5); Sodium 137 mEq/L (136-145); Total Protein 6.3 g/dL (6.0-8.3); eGFR For African Americans > 60 (> 60); eGFR For Non-African Americans 53 (> 60)
[2017-01-12 02:36] LABS: Carbon Dioxide 42 mEq/L (19-29)
[2017-01-12] MEDS: *HR* Heparin 5,000 UNIT/ML VIAL SQ SCH ×2 (06:37→17:39)
[2017-01-12] MEDS ORDERED: Potassium Chloride 40 MEQ, Lidocaine 1% 2 ML in D5% in Water 500 ML IVPB ONE (07:42)
[2017-01-12] MEDS: metOLazone 5 MG TABLET PO SCH (09:07)
[2017-01-12] MEDS: Furosemide 40 MG/4 ML VIAL IVP SCH ×2 (09:07→19:55)
[2017-01-12] MEDS: Fluconazole 100 MG TABLET PO SCH (09:07)
[2017-01-12] MEDS: Ketoconazole 2% CRM 15 GM TUBE TP SCH ×2 (09:07→19:56)
[2017-01-12] MEDS: Isosorbide MONOnitrate (24 HR) 30 MG TAB.ER.24H PO SCH (09:07)
[2017-01-12] MEDS: Aspirin Enteric Coated 81 MG Tablet PO SCH (09:07)
[2017-01-12] MEDS: Metoprolol XL (24 HR) Succ 50 MG TAB.ER.24H PO SCH (09:07)
[2017-01-12] MEDS: Insulin LISPRO 300 UNITS/3 ML VIAL SQ SCH ×3 (09:08→17:39)
[2017-01-12] MEDS: Insulin DETEMIR 100 UNIT/ML X5UNITS SQ SCH ×2 (09:19→19:55)
--- NOTE | 2017-01-12 14:01 | Internal Med Progress Note ---
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 Current Visit: Yes Status: Acute Qualifiers: Diabetic foot ulcer location: unspecified part of foot Diabetes mellitus type: other specified (including EMILY) Qualified Code(s): E13.621 - Other specified diabetes mellitus with foot ulcer; L97.512 - Non-pressure chronic ulcer of other part of right foot with fat layer exposed (5) Jblim-ii-molkjov kidney injury Current Visit: Yes Status: Suspected Qualifiers: Acute renal failure type: unspecified Chronic kidney disease stage: unspecified stage Qualified Code(s): N17.9 - Acute kidney failure, unspecified ; N18.9 - Chronic kidney disease, unspecified (6) Insulin dependent diabetes mellitus Current Visit: Yes Status: Chronic - Subjective Interval history: Patient has past medical history of CABG, diabetes. He is is admitted for chest pain. Patient is a very poor historian. Apparently he had a fall at home and admitting hospitalist feel that it would be chest wall pain however troponins are slightly elevated though flat in the setting of elevated creatinine. His main issue however is congestive heart failure as chest x-ray has shown bilateral pleural effusion and we have restarted IV Lasix 80 twice a day plus Zaroxolyn for a few days . Echocardiogram and cardiology consults were requested. Echo showed LV ejection fraction 60% with good LV systolic function and no significant valvular abnormality. Cardiology has suggested medical management as previously he was recommended to get left heart catheter and he preferred medical management. Patient has slightly elevated creatinine and perhaps more related to diuresis as his GFR is above 60. I will change Lasix to by mouth now. On admission his liver ultrasound was done and I am not sure what was the reason but it showed liver cirrhosis. Although he is nonalcoholic but he has significant family history of nonalcoholic liver disease including his brother for her GERD liver cirrhosis and also his mother. It was noted that due to body habitus not much could be visualized. Patient has chronic right foot ulcer. Patient does get wound care at home and according to family it has healed quite a lot. .Patient's family states that since April he has been having difficulty in ambulating for the last 2 weeks cannot get out of bed by himself and has been falling. We did MRI brain ultrasound carotid and echocardiogram and all turned out unremarkable. PT/OT consulted. He is already on aspirin. Fasting lipid profile is satisfactory. He has adequate lower extremity strength but seems less motivated to get out of bed Complaining of left shoulder pain. On examination it appears AC joint pain as well as rotator cuff injury. Left shoulder x-ray confirmed AC joint spurring and consult physical therapy. Patient feels much better today. He is breathing well. We will switch his diuretics oral and discharge him home. However his potassium is 2.9 and therefore we will supplemented recheck it in the morning and then discharged with physical therapy. - Constitutional Vitals: Temp Pulse Resp BP Pulse Ox 97.7 F 61 16 100/62 96 01/12/17 10:45 01/12/17 10:45 01/12/17 10:45 01/12/17 10:45 01/12/17 10:45 General appearance: Present: cooperative, mild distress, A&O X 3, pleasant, answers questions appropriately - Head Head exam: Present: atraumatic, normocephalic - Eye Eye exam: Present: PERRL, conjuntiva pink, sclera anicteric Pupils: Present: PERRL - Neck Neck exam general surgery: Present: supple, trachea midline. Absent: lymphadenopathy - Respiratory Respiratory exam: Present: CTAB. Absent: accessory muscle use, rales, rhonchi, wheezes - Cardiovascular Cardiovascular exam: Present: RRR, +S1, +S2. Absent: diastolic murmur, gallop, rubs, systolic murmur - GI/Abdominal GI/Abdominal exam: Present: normal bowel sounds, soft, no peritoneal signs. Absent: distended, tenderness - Extremities Exam Extremities exam: Present: warm, radial pulses palpable and symmetrical. Absent : calf tenderness, cyanotic, pedal edema - Neurological Exam Neurological exam: Present: CN II-XII intact, oriented X3, no focal deficits. Absent: pronater drift, facial droop, speech deficit - Skin Skin exam: Present: dry, intact Internal Medicine: Result - Labs CBC & Chem 7: 01/12/17 01:20 01/12/17 01:20 Labs: Short CBC 01/12/17 Range/Units 01:20 WBC 8.7 (4.3-11.1) K/mcL Hgb 10.2 L (12.9-16.9) g/dL Hct 32.6 L (37.5-50.1) % Plt Count 103 L (140-400) K/mcL Neutrophils # 5.2 (1.6-8.9) K/mcL BMP 01/12/17 01:20 Sodium 137 Potassium 2.9 L Chloride 89 L Carbon Dioxide 42 H* BUN 42 H Creatinine 1.31 H Glucose 119 H Calcium 8.7 Liver Function 01/12/17 Range/Units 01:20 Total Bilirubin 1.2 (0.2-1.2) mg/dL AST 21 (5-34) Units/L ALT 12 (0-55) Units/L Alkaline Phosphatase 105 (38-126) Units/L Albumin 2.3 L (3.5-5.0) g/dL - ABG Interpretation ABG results: PT/INR, D-dimer PT 14.7 Seconds (9.4-12.1) H 01/08/17 08:37 - Impressions Impressions Shoulder X-Ray 01/11/17 17:24 IMPRESSION: No fracture or malalignment. D/ / Constantino Dotson MD / Constantino Dotson MD Interpreting Provider: Constantino Dotson MD Consult Discharge Plan - Plan Referrals: [facility] [place],Dale Nava MD [Primary Care Provider] -
[2017-01-13 04:32] LABS: Basophils % 0.3 %; Lymphocytes % 25.2 %; Mean Platelet Volume 11.5 fL (9.4-12.4)
[2017-01-13 04:34] LABS: Eosinophils # 0.4 K/mcL (0.0-0.6); Eosinophils % 6.4 %; Hematocrit 32.4 % (37.5-50.1); Hemoglobin 9.9 g/dL (12.9-16.9); Immature Granulocytes % 0.3 % (0-4); Immature Platelets 6.7 % (1.1-6.1); Lymphocytes # 1.5 K/mcL (0.6-4.6); Mean Corpuscular HGB Conc 30.6 g/dL (31.6-35.5); Mean Corpuscular Hemoglobin 28.9 pg (28.0-33.3); Mean Corpuscular Volume 94.5 fL (83.0-100.0); Monocytes # 0.7 K/mcL (0.0-1.3); Monocytes % 11.2 %; Neutrophils # 3.3 K/mcL (1.6-8.9); Platelet Count 105 K/mcL (140-400); Red Blood Count 3.43 M/mcL (4.19-5.50); Red Cell Distribution Width 16.8 % (11.5-14.5); Segmented Neutrophils % 56.6 %
[2017-01-13 04:54] LABS: Alanine Aminotransferase 17 Units/L (0-55); Albumin 2.5 g/dL (3.5-5.0); Albumin/Globulin Ratio 0.6 (1.1-2.2); Alkaline Phosphatase 118 Units/L (38-126); Aspartate Amino Transferase 30 Units/L (5-34); BUN/Creatinine Ratio 43 (6-26); Bilirubin,Total 0.9 mg/dL (0.2-1.2); Blood Urea Nitrogen 48 mg/dL (8-26); Calcium 8.9 mg/dL (8.6-10.8); Chloride 88 mEq/L (98-109); Globulin 4.2 g/dL (2.4-3.5); Glucose 132 mg/dL (70-99); Osmolality,Calculated 302 (280-300); Potassium 2.8 mEq/L (3.5-4.5); Sodium 139 mEq/L (136-145); Total Protein 6.7 g/dL (6.0-8.3); eGFR For African Americans > 60 (> 60); eGFR For Non-African Americans > 60 (> 60)
[2017-01-13 04:58] LABS: Carbon Dioxide 45 mEq/L (19-29)
[2017-01-13] MEDS: *HR* Heparin 5,000 UNIT/ML VIAL SQ SCH ×2 (05:52→18:35)
[2017-01-13] MEDS ORDERED: Potassium Chloride 40 MEQ, Lidocaine 1% 2 ML in D5% in Water 500 ML IVPB ONE (09:12)
[2017-01-13] MEDS ORDERED: Magnesium Sulfate 2 GM in D5% in Water 100 ML IVPB ONE (09:12)
--- NOTE | 2017-01-13 09:20 | Internal Med Progress Note ---
Date of Encounter: 01/13/17 Time of Encounter: 09:16 - Assessment and plan (1) CHF (congestive heart failure) Current Visit: Yes Status: Acute Qualifiers: Congestive heart failure type: unspecified congestive heart failure type Congestive heart failure chronicity: acute on chronic Qualified Code(s): I50.9 - Heart failure, unspecified (2) Chest pain Current Visit: Yes Status: Acute Qualifiers: Chest pain type: unspecified Qualified Code(s): R07.9 - Chest pain, unspecified (3) Multiple falls Current Visit: Yes Status: Acute (4) Diabetic ulcer of right foot with fat layer exposed Current Visit: Yes Status: Acute Qualifiers: Diabetic foot ulcer location: unspecified part of foot Diabetes mellitus type: other specified (including EMILY) Qualified Code(s): E13.621 - Other specified diabetes mellitus with foot ulcer; L97.512 - Non-pressure chronic ulcer of other part of right foot with fat layer exposed (5) Bbcpx-om-mghyrwg kidney injury Current Visit: Yes Status: Suspected Qualifiers: Acute renal failure type: unspecified Chronic kidney disease stage: unspecified stage Qualified Code(s): N17.9 - Acute kidney failure, unspecified ; N18.9 - Chronic kidney disease, unspecified (6) Insulin dependent diabetes mellitus Current Visit: Yes Status: Chronic - Subjective Interval history: Patient has past medical history of CABG, diabetes. He is is admitted for chest pain. Patient is a very poor historian. Apparently he had a fall at home and admitting hospitalist feel that it would be chest wall pain however troponins are slightly elevated though flat in the setting of elevated creatinine. His main issue however is congestive heart failure as chest x-ray has shown bilateral pleural effusion and we have restarted IV Lasix 80 twice a day plus Zaroxolyn for a few days . Echocardiogram and cardiology consults were requested. Echo showed LV ejection fraction 60% with good LV systolic function and no significant valvular abnormality. Cardiology has suggested medical management as previously he was recommended to get left heart catheter and he preferred medical management. Patient has slightly elevated creatinine and perhaps more related to diuresis as his GFR is above 60. I will change Lasix to by mouth now. On admission his liver ultrasound was done and I am not sure what was the reason but it showed liver cirrhosis. Although he is nonalcoholic but he has significant family history of nonalcoholic liver disease including his brother for her GERD liver cirrhosis and also his mother. It was noted that due to body habitus not much could be visualized. Patient has chronic right foot ulcer. Patient does get wound care at home and according to family it has healed quite a lot. .Patient's family states that since April he has been having difficulty in ambulating for the last 2 weeks cannot get out of bed by himself and has been falling. We did MRI brain ultrasound carotid and echocardiogram and all turned out unremarkable. PT/OT consulted. He is already on aspirin. Fasting lipid profile is satisfactory. He has adequate lower extremity strength but seems less motivated to get out of bed Complaining of left shoulder pain. On examination it appears AC joint pain as well as rotator cuff injury. Left shoulder x-ray confirmed AC joint spurring and consult physical therapy. Patient feels much better today. He is breathing well. However his potassium is 2.9 and therefore we will supplemented recheck it in the morning . 01/13 Patient had been diuresed very aggressively during this admission. I suspect his I's and O's are not accurate as he has lost 16 kg of weight in last 5 days during this admission. He is on very aggressive regimen including IV Lasix 80 twice a day plus Zaroxolyn 10 mg daily. I will supplement magnesium and potassium by giving 2 g magnesium and 40 KCl IV and 40 KCl by mouth and will recheck tomorrow morning as potassium is only 2.8. His sodium is is still 137 and creatinine actually normalized. I think we can diuresed him one or 2 more days but at this time I will stop his Zaroxolyn as his bicarbonate is started rising. Once his potassium is normal and sodium is started rising we can switch him to oral Lasix and discharge. He will need physical therapy for his left shoulder which shows before meals joint spurring and rotator cuff injury clinically. Clinically patient feels great and says he has not best so well in several months. - Constitutional Vitals: Temp Pulse Resp BP Pulse Ox 98.0 F 64 16 115/69 94 01/13/17 08:27 01/13/17 08:27 01/13/17 08:27 01/13/17 08:27 01/13/17 08:27 General appearance: Present: cooperative, A&O X 3, pleasant, no acute distress, answers questions appropriately - Head Head exam: Present: atraumatic, normocephalic - Eye Eye exam: Present: PERRL, conjuntiva pink, sclera anicteric Pupils: Present: PERRL - Neck Neck exam general surgery: Present: supple, trachea midline. Absent: lymphadenopathy - Respiratory Respiratory exam: Present: CTAB. Absent: accessory muscle use, rales, rhonchi, wheezes - Cardiovascular Cardiovascular exam: Present: RRR, +S1, +S2. Absent: diastolic murmur, gallop, rubs, systolic murmur - GI/Abdominal GI/Abdominal exam: Present: normal bowel sounds, soft, no peritoneal signs. Absent: distended, tenderness - Extremities Exam Extremities exam: Present: pedal edema, warm, radial pulses palpable and symmetrical. Absent: calf tenderness, cyanotic - Neurological Exam Neurological exam: Present: CN II-XII intact, oriented X3, no focal deficits. Absent: pronater drift, facial droop, speech deficit - Skin Skin exam: Present: dry, intact Internal Medicine: Result - Labs CBC & Chem 7: 01/13/17 04:10 01/13/17 04:10 Labs: Short CBC 01/13/17 Range/Units 04:10 WBC 5.9 (4.3-11.1) K/mcL Hgb 9.9 L (12.9-16.9) g/dL Hct 32.4 L (37.5-50.1) % Plt Count 105 L (140-400) K/mcL Neutrophils # 3.3 (1.6-8.9) K/mcL BMP 01/13/17 04:10 Sodium 139 Potassium 2.8 L Chloride 88 L Carbon Dioxide 45 H* BUN 48 H Creatinine 1.11 Glucose 132 H Calcium 8.9 Liver Function 01/13/17 Range/Units 04:10 Total Bilirubin 0.9 (0.2-1.2) mg/dL AST 30 (5-34) Units/L ALT 17 (0-55) Units/L Alkaline Phosphatase 118 (38-126) Units/L Albumin 2.5 L (3.5-5.0) g/dL - ABG Interpretation ABG results: PT/INR, D-dimer PT 14.7 Seconds (9.4-12.1) H 01/08/17 08:37 Consult Discharge Plan - Plan Referrals: Niko,Dale Nava MD [Primary Care Provider] -
[2017-01-13] MEDS: Insulin LISPRO 300 UNITS/3 ML VIAL SQ SCH ×3 (10:17→18:07)
[2017-01-13] MEDS: Aspirin Enteric Coated 81 MG Tablet PO SCH (10:56)
[2017-01-13] MEDS: Isosorbide MONOnitrate (24 HR) 30 MG TAB.ER.24H PO SCH (10:56)
[2017-01-13] MEDS: Fluconazole 100 MG TABLET PO SCH (10:56)
[2017-01-13] MEDS: Furosemide 40 MG/4 ML VIAL IVP SCH ×2 (11:17→19:55)
[2017-01-13] MEDS: Insulin DETEMIR 100 UNIT/ML X5UNITS SQ SCH ×2 (11:31→19:56)
[2017-01-13] MEDS: Metoprolol XL (24 HR) Succ 50 MG TAB.ER.24H PO SCH (11:34)
[2017-01-13] MEDS: Ketoconazole 2% CRM 15 GM TUBE TP SCH ×2 (18:07→19:56)
[2017-01-13] MEDS: metOLazone 5 MG TABLET PO SCH (19:28)
--- NOTE | 2017-01-13 20:47 | Electrocardiograph Report ---
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
--- NOTE | 2017-01-13 21:53 | Electrocardiograph Report ---
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
[2017-01-14] MEDS: *HR* Heparin 5,000 UNIT/ML VIAL SQ SCH (06:47)
[2017-01-14 08:09] LABS: Alanine Aminotransferase 27 Units/L (0-55); Albumin 2.7 g/dL (3.5-5.0); Albumin/Globulin Ratio 0.6 (1.1-2.2); Alkaline Phosphatase 136 Units/L (38-126); Aspartate Amino Transferase 45 Units/L (5-34); BUN/Creatinine Ratio 43 (6-26); Bilirubin,Total 0.7 mg/dL (0.2-1.2); Blood Urea Nitrogen 44 mg/dL (8-26); Calcium 9.2 mg/dL (8.6-10.8); Chloride 87 mEq/L (98-109); Globulin 4.2 g/dL (2.4-3.5); Glucose 120 mg/dL (70-99); Osmolality,Calculated 306 (280-300); Sodium 142 mEq/L (136-145); Total Protein 6.9 g/dL (6.0-8.3); eGFR For African Americans > 60 (> 60); eGFR For Non-African Americans > 60 (> 60)
[2017-01-14 08:11] LABS: Basophils % 0.3 %; Eosinophils # 0.4 K/mcL (0.0-0.6); Eosinophils % 6.5 %; Immature Granulocytes % 0.2 % (0-4); Lymphocytes % 32.9 %; Mean Corpuscular HGB Conc 30.3 g/dL (31.6-35.5); Mean Corpuscular Hemoglobin 28.8 pg (28.0-33.3); Mean Corpuscular Volume 95.1 fL (83.0-100.0); Mean Platelet Volume 11.4 fL (9.4-12.4); Monocytes # 0.6 K/mcL (0.0-1.3); Neutrophils # 3.1 K/mcL (1.6-8.9); Platelet Count 118 K/mcL (140-400); Red Blood Count 3.47 M/mcL (4.19-5.50); Red Cell Distribution Width 16.6 % (11.5-14.5); Segmented Neutrophils % 50.1 %
[2017-01-14 08:12] LABS: Carbon Dioxide 47 mEq/L (19-29)
[2017-01-14] MEDS: Isosorbide MONOnitrate (24 HR) 30 MG TAB.ER.24H PO SCH (09:07)
[2017-01-14] MEDS: Fluconazole 100 MG TABLET PO SCH (09:07)
[2017-01-14] MEDS: Insulin DETEMIR 100 UNIT/ML X5UNITS SQ SCH (09:07)
[2017-01-14] MEDS: Aspirin Enteric Coated 81 MG Tablet PO SCH (09:07)
[2017-01-14] MEDS: Metoprolol XL (24 HR) Succ 50 MG TAB.ER.24H PO SCH (09:07)
[2017-01-14] MEDS: Insulin LISPRO 300 UNITS/3 ML VIAL SQ SCH ×2 (09:08→12:28)
[2017-01-14] MEDS: Ketoconazole 2% CRM 15 GM TUBE TP SCH (09:08)
[2017-01-14] MEDS ORDERED: *HR* OxyCODONE/APAP 5/325 TABLET PO ONE (09:16)
[2017-01-14] MEDS: Furosemide 40 MG/4 ML VIAL IVP SCH (09:18)
[2017-01-14] MEDS ORDERED: Magnesium Sulfate 2 GM in D5% in Water 100 ML IVPB ONE (13:35)
[2017-01-14] MEDS ORDERED: Potassium Chloride Elixir 20 MEQ/15 ML UDC PO ONE (13:35)
--- NOTE | 2017-01-14 13:48 | Discharge Summary ---
Date of Encounter: 01/14/17 Time of Encounter: 13:47 - Discharge Diagnosis (1) CHF (congestive heart failure) Priority: Primary Status: Acute Qualifiers: Congestive heart failure type: diastolic Congestive heart failure chronicity: acute on chronic Qualified Code(s): I50.33 - Acute on chronic diastolic (congestive) heart failure (2) Elevated troponin I level Priority: Primary Status: Acute (3) STAR (acute kidney injury) Priority: Primary Status: Acute (4) Diabetic ulcer of right foot with fat layer exposed Priority: Secondary Status: Chronic Qualifiers: Diabetic foot ulcer location: unspecified part of foot Diabetes mellitus type: type 2 Qualified Code(s): E11.621 - Type 2 diabetes mellitus with foot ulcer; L97.512 - Non-pressure chronic ulcer of other part of right foot with fat layer exposed (5) Debility Priority: Secondary Status: Chronic (6) Insulin dependent diabetes mellitus Priority: Secondary Status: Chronic (7) CAD (coronary artery disease) Priority: Secondary Status: Chronic Qualifiers: Coronary Disease-Associated Artery/Lesion type: bypass graft [place] vs. transplanted heart: [place] heart Associated angina: without angina Qualified Code(s): I25.810 - Atherosclerosis of coronary artery bypass graft(s) without angina pectoris - Discharge Medications Prescriptions: HYDROcodone/Acet 5/325 mg [[place] 5-325 mg] 1 tab PO Q6H PRN #15 tab PRN Reason: Pain Home Medications: Atorvastatin [Lipitor] 40 mg PO HS 10/09/16 [History] Insulin Glargine,Hum.rec.anlog [Lantus Solostar] 32 unit SQ DAILY 10/09/16 [ History] Insulin Glargine,Hum.rec.anlog [Lantus Solostar] 40 unit SQ HS 10/09/16 [History ] Insulin LISPRO [Humalog] 0 unit SQ TIDWM 10/09/16 [History] Lisinopril [Zestril] 5 mg PO DAILY 10/09/16 [History] Potassium Chloride [Klor-Con 10] 30 meq PO BID 10/09/16 [History] Pramipexole [Mirapex] 1.5 mg PO HS 10/09/16 [History] metOLazone [Zaroxolyn] 2.5 mg PO Q48H 10/09/16 [History] Aspirin Enteric Coated [Aspirin EC] 81 mg PO DAILY 01/07/17 [History] Ferrous Sulfate 325 mg PO BIDWM 01/07/17 [History] Isosorbide MONOnitrate (24 HR) [Imdur] 30 mg PO DAILY 01/07/17 [History] Metoprolol XL (24 HR) Succ [Toprol Xl] 50 mg PO DAILY 01/07/17 [History] [place]-3 Fatty Acids [Fish Oil Concentrate] 1,000 mg PO DAILY 01/07/17 [History] Furosemide [Lasix] 80 mg PO BIDDIURETIC tab 01/14/17 [Rx] HYDROcodone/Acet 5/325 mg [[place] 5-325 mg] 1 tab PO Q6H PRN #15 tab 01/14/17 [Rx ] Allergies/Adverse Reactions: 3 Allergy/AdvReac Type Severity Reaction Status Date / Time Latex, Natural Rubber AdvReac Rash Verified 07/29/16 13:54 Procedures/tests Complete & Pending: Procedures Performed prior 72 hours Category Date Time Status ECG 12 lead ECG [ECG] Routine Y 01/12/17 00:08 Completed Date of admission: 01/09/17 08:33 Primary care physician: Dale Pope MD Consults: 01/10/17 11:38 Consult to Environmental Tech [CONS] Routine Reason for SW Consult: home oxygen Discharging clinician: Heidi Albert Anticipated date of discharge: 01/14/17 - Patient Status Disposition: Transfer SNF Condition: Good Functional capacity at discharge: uses cane/walker Overall status at discharge: patient is progressing back to baseline - Discharge Instructions Follow Up With: Dale Pope MD [Primary Care Provider] - Additional Instructions: F/up with PCP in 1-2 weeks - Diet and Activity Activity: as per physical therapy, wear oxygen at all times Diet: diabetic diet, low fat, low cholesterol, low salt diet (fluid restriction to 1.2L/day; B/L leg elevation) Hospital course: Mr. Ramos is a 76 year old male with h/o- CHF who was admitted with chest pain and symptoms of volume overload. He was noted to have acute on chronic congestive heart failure, started on aggressive IV diuresis with significant urine output and improvement in symptoms. Cardiology was consulted and agreed with this management, patient underwent LHC in the past and opted for medical management. Zaroxylene was added. He was noted to have significant deconditioning due to underlying medical conditions; PT/OT evaluation was completed and recommend placement in ECF, to which patient and family were agreeable and he is currently medically stable for discharge. - Time Spent with Patient Total time spent providing and/or coordinating discharge services: Greater than 30 minutes (45 min) - Constitutional Vitals: Temp Pulse Resp BP Pulse Ox 98.3 F 64 14 119/53 96 01/14/17 11:32 01/14/17 11:32 01/14/17 11:32 01/14/17 11:32 01/14/17 11:32 General appearance: Present: A&O X 3, morbidly obese, answers questions appropriately - Respiratory Respiratory exam: Present: CTAB. Absent: accessory muscle use, rales, rhonchi, wheezes - Cardiovascular Cardiovascular exam: Present: RRR, +S1, +S2. Absent: diastolic murmur, gallop, rubs, systolic murmur
--- NOTE | 2017-01-14 14:00 | Physician Discharge Referral ---
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 (5) Debility Priority: Secondary Status: Chronic (6) Insulin dependent diabetes mellitus Priority: Secondary Status: Chronic (7) CAD (coronary artery disease) Priority: Secondary Status: Chronic Expected Duration of Placement: 3 weeks Prognosis: Fair Aware of Diagnosis: Patient, Family Aware of Prognosis: Patient, Family - Transfer Medications Prescriptions: HYDROcodone/Acet 5/325 mg [[place] 5-325 mg] 1 tab PO Q6H PRN #15 tab PRN Reason: Pain Home Medications: Atorvastatin [Lipitor] 40 mg PO HS 10/09/16 [History] Insulin Glargine,Hum.rec.anlog [Lantus Solostar] 32 unit SQ DAILY 10/09/16 [ History] Insulin Glargine,Hum.rec.anlog [Lantus Solostar] 40 unit SQ HS 10/09/16 [History ] Insulin LISPRO [Humalog] 0 unit SQ TIDWM 10/09/16 [History] Lisinopril [Zestril] 5 mg PO DAILY 10/09/16 [History] Potassium Chloride [Klor-Con 10] 30 meq PO BID 10/09/16 [History] Pramipexole [Mirapex] 1.5 mg PO HS 10/09/16 [History] metOLazone [Zaroxolyn] 2.5 mg PO Q48H 10/09/16 [History] Aspirin Enteric Coated [Aspirin EC] 81 mg PO DAILY 01/07/17 [History] Ferrous Sulfate 325 mg PO BIDWM 01/07/17 [History] Isosorbide MONOnitrate (24 HR) [Imdur] 30 mg PO DAILY 01/07/17 [History] Metoprolol XL (24 HR) Succ [Toprol Xl] 50 mg PO DAILY 01/07/17 [History] [place]-3 Fatty Acids [Fish Oil Concentrate] 1,000 mg PO DAILY 01/07/17 [History] Furosemide [Lasix] 80 mg PO BIDDIURETIC tab 01/14/17 [Rx] HYDROcodone/Acet 5/325 mg [[place] 5-325 mg] 1 tab PO Q6H PRN #15 tab 01/14/17 [Rx ] Allergies/Adverse Reactions: 3 Allergy/AdvReac Type Severity Reaction Status Date / Time Latex, Natural Rubber AdvReac Rash Verified 07/29/16 13:54 - Respiratory Orders Oxygen / L per min (4L/min via [place]) Smoking Cessation: Smoking cessation has been advised. For more information, call the [place] Tobacco Quit Line at 8-507-VBLM-NOW. - Advance Directives Code Status: Full Code - Mobility Orders Ambulate - Rehabiliation Orders Rehab Potential: Fair Rehab Orders: ROM Exercises, Evaluation for Physical Therapy, Evaluation for Occupational Therapy - Diet Orders No Added Salt (JUAN LUIS), No Concentrated Sweets (diabetic), Cardiac CERTIFICATION: I certify that the transfer of the above named patient to an Extended Care Facility is necessary for the continuing treatment of the diagnosis listed. The above information is true and accurate reflection of patient's current condition. Confidential - Redisclosure prohibited without a patient's written consent.
[2017-01-14 15:27] VITALS: BP 128/69
[2017-01-14] MEDS ORDERED: Furosemide 40 MG TABLET PO SCH (17:00)
== END 2017-01-14 17:46 | DRG 291 ==
LOC: EMEROO 19:00 → 3BNU 19:00 → SUATTDRO 01-09 08:33
PROVIDERS: ADMIT Family Medicine; ATTEND Internal Medicine